=== PATIENT | female | born 1945 | race Caucasian/White ===

== ENCOUNTER → 2016-09-06 | Outpatient (CLI) | payer MEDICARE, BC | LOC: MW.CHGS 08:00 | PROVIDERS: ATTEND Surgery | DX: C18.9 Malignant neoplasm of colon, unspecified (principal) | CPT/HCPCS: 99203 ==

== ENCOUNTER 2016-09-22 09:06 | Day surgery (SDC) | payer MEDICARE, BC ==
[~2016-09-22 09:06] MED LIST: Lactated Ringers 1,000 ML IV SCH; Propofol 200 MG/20 ML SDV ONE; Sodium Chloride 0.9% 10 ML Syringe FLUSH PRN; Sodium Chloride 0.9% 2.5 ML Syringe FLUSH PRN; fentaNYL 100 MCG/2 ML SDV ONE
--- NOTE | 2016-09-22 09:51 | PCM.PREANE ---
Preanesthetic Assessment - Anesthesia/Transfusion/Family Hx Anesthesia History: Prior Anesthesia Without Reaction Family History of Anesthesia Reaction: No Transfusion History: Prior Transfusion Without Reaction - Review of Systems General: No Symptoms Pulmonary: No Symptoms Cardiovascular: No Symptoms Gastrointestinal: No symptoms Neurological: No Symptoms Other: Reports: None - Physical Assessment NPO Status Date: 09/21/16 NPO Status Time: 23:45 O2 Sat by Pulse Oximetry: 99 Respiratory Rate: 16 Vital Signs: Last Vital Signs Temp 37.2 C 09/22/16 09:28 Pulse 72 09/22/16 09:28 Resp 16 09/22/16 09:28 BP 105/59 L 09/22/16 09:28 Pulse Ox 99 09/22/16 09:28 Height: 1.57 m Weight: 54.885 kg ASA Class: 1 Mental Status: Alert & Oriented x3 Airway Class: Mallampati = 1 Dentition: Reports: Normal Dentition ROM/Head Extension: Full Lungs: Clear to auscultation Cardiovascular: Regular Rate - Allergies Allergies/Adverse Reactions: Allergies Allergy/AdvReac Type Severity Reaction Status Date / Time No Known Allergies Allergy Verified 09/20/16 09:28 - Anesthesia Plan Pre-Op Medication Ordered: None - Acknowledgements Anesthesia Type Planned: MAC Pt an Appropriate Candidate for the Planned Anesthesia: Yes Alternatives and Risks of Anesthesia Discussed w Pt/Guardian: Yes Pt/Guardian Understands and Agrees with Anesthesia Plan: Yes PreAnesthesia Questionnaire HEENT History: Reports: Other (see below) Other HEENT History: wears glasses Cardiovascular History: Reports: High cholesterol Gastrointestinal History: Reports: Hiatal hernia Genitourinary History: Reports: None TRANSPORT RN History: Reports: Hematologic History: Reports: Blood transfusion(s) Other Hematologic History: hx blood transfusion during chemo treatment - Past Surgical History Head Surgeries/Procedures: Reports: None GI Surgical History: Reports: Colon Other GI Surgeries/Procedures: partial colectomy for colon cancer Female Surgical History: Reports: section Other Female Surgeries/Procedures: c/section x2 - SUBSTANCE USE Smoking Status *Q: Never Smoker Recreational Drug Use History: No - HOME MEDS Home Medications: Home Meds Cyanocobalamin (Vitamin B12) [Vitamin B12] 1,000 mcg PO BID 09/20/16 [History] Magnesium Oxide 400 mg PO DAILY 09/20/16 [History] Potassium Chloride 20 meq PO DAILY 09/20/16 [History] atorvaSTATin Calcium [Atorvastatin Calcium] 40 mg PO DAILY 09/20/16 [History] - CURRENT (IN HOUSE) MEDS Current Meds: Current Medications Lactated Ringer's (Ringers, Lactated) 1,000 mls @ 125 mls/hr IV ASDIRECTED WYATT Last Admin: 09/22/16 09:30 Dose: 125 mls/hr Sodium Chloride (Saline Flush) 10 ml FLUSH ASDIRECTED PRN PRN Reason: Keep Vein Open Sodium Chloride (Saline Flush) 2.5 ml FLUSH ASDIRECTED PRN PRN Reason: Keep Vein Open Discontinued Medications Fentanyl (Sublimaze) Confirm Administered Dose 100 mcg .ROUTE .STK-MED ONE Stop: 09/22/16 06:59 Propofol (Diprivan 20 Ml) Confirm Administered Dose 400 mg .ROUTE .STK-MED ONE Stop: 09/22/16 06:59 Preanesthetic Assessment - ANESTHESIA/TRANSFUSION/FAMILY HX Family History of Anesthesia Reaction: No - PHYSICAL ASSESSMENT O2 Sat by Pulse Oximetry: 99 RR: 16 Vital Signs: Last Vital Signs Temp 37.2 C 09/22/16 09:28 Pulse 72 09/22/16 09:28 Resp 16 09/22/16 09:28 BP 105/59 L 09/22/16 09:28 Pulse Ox 99 09/22/16 09:28 Height: 1.57 m Weight: 54.885 kg NPO Status Date: 09/21/16 NPO Status Time: 23:45 - ALLERGIES Allergies/Adverse Reactions: Allergies Allergy/AdvReac Type Severity Reaction Status Date / Time No Known Allergies Allergy Verified 09/20/16 09:28
--- NOTE | 2016-09-22 11:47 | PCM.OPNOTE ---
- General Post-Op/Procedure Note Date of Surgery/Procedure: 09/22/16 Operative Procedure(s): Diagnostic colonoscopy Findings: Stenosis at anastamotic site Pre Op Diagnosis: History of colon cancer Post-Op Diagnosis: same Anesthesia Technique: MAC Primary Surgeon: Brooklyn Crooks Condition: Good
--- NOTE | 2016-09-22 11:59 | PCM.POSTAN ---
POST ANESTHESIA ASSESSMENT - MENTAL STATUS Mental Status: alert, oriented - RESPIRATORY Respiratory Status: respiratory rate WNL, airway patent, O2 saturation stable - CARDIOVASCULAR CV Status: pulse rate WNL, blood pressure stable - GASTROINTESTINAL GI Status: no symptoms - PAIN Pain Score: 0 - POST OP HYDRATION Hydration Status: adequate & stable
[2016-09-22 12:11] VITALS: BP 124/71
--- NOTE | 2016-09-22 13:16 | PCM48HPAN ---
Post Anesthesia Note - EVALUATION WITHIN 48HRS OF ANESTHETIC Vital Signs in Normal Range: Yes Patient Participated in Evaluation: Yes Respiratory Function Stable: Yes Airway Patent: Yes Cardiovascular Function Stable: Yes Hydration Status Stable: Yes Pain Control Satisfactory: Yes Nausea and Vomiting Control Satisfactory: Yes Mental Status Recovered: Yes
--- NOTE | 2016-09-22 16:19 | CR ---
EXAMINATION: Single contrast barium enema HISTORY: Anastomotic stenosis COMPARISON: CT dated 12/28/2015 TECHNIQUE: Single contrast barium minimal was performed. FINDINGS: There is a moderate stenosis at the surgical anastomosis site at the rectosigmoid junction . This was noted early during the procedure however the cecum overlies this area and a cyst was not well characterized on the later images. The remaining colon appears normally distensible. No filling defect or stricture within the remaining colon. No reflux into the terminal ileum. IMPRESSION: 1. At least a moderate short segment stenosis at the rectosigmoid junction.
--- NOTE | 2016-09-22 21:22 | OR ---
SURGEON: KVNG ESTRADA MD DATE OF PROCEDURE: 09/22/2016 PREOPERATIVE DIAGNOSIS: History of colon cancer. POSTOPERATIVE DIAGNOSIS: Stenosis at the anastomotic site. PROCEDURE PERFORMED: Diagnostic colonoscopy with biopsies. INSTRUMENT USED: Olympus colonoscope. ANESTHESIA: MAC. EXTENT OF THE EXAM: 5 cm from the anus. PREPARATION: Good. LIMITATIONS: None. INDICATIONS FOR EXAMINATION: The patient is a 71-year-old female, who presents for her 3-year followup colonoscopy. She had a rectosigmoid resection for colon cancer performed 3 years ago. Her 1 year followup colonoscopy was normal. The patient would like to have her 3-year colonoscopy performed here to avoid a trip to [place]. The patient has been having no changes in her bowel habits as of recent including changing color, caliber, or consistency of her stool. The patient and I discussed the colonoscopy procedure including expected perioperative course. We discussed the risks, including bleeding, infection, or damage to surrounding structures, including perforation. The patient verbalized understanding and wished to proceed. PROCEDURE IN DETAIL: The patient was brought into the endoscopy suite and placed in left lateral decubitus position. A time-out was completed verifying the patient's name, age, date of , allergies, and procedure to be performed. Monitored anesthesia care was induced. Continuous oxygen was provided via face mask throughout the procedure. After adequate sedation was achieved, a digital rectal exam was performed. This examination was within normal limits. A well lubricated colonoscope was then inserted in the rectum and advanced under direct visualization. Between 5 to 10 cm from the anal verge, saul were noted within the colon. This is consistent with the patient's previous surgical history. I was unable to transverse my scope past the anastomosis itself. This was a narrow opening bounded by saul. No gross fungating mass was noted in the area. I was able to note a very small anastomotic opening. A biopsy forceps was brought into the field and easily traversed past this opening. I irrigated the area copiously and inspected the surrounding tissue. No masses were noted and fluid passed easily past the opening. Biopsies were taken in a circumferential manner around the anastomotic site and sent to pathology. The scope was then completely removed from the patient and the procedure terminated. The patient was then transferred to the recovery room in stable condition. ENDOSCOPIC DIAGNOSIS: Anastomotic stricture. RECOMMENDATIONS: The patient will go for a contrast barium enema in Radiology today. A CEA level was drawn that came back as 2.2. We will have the patient be seen by her previous surgeon, Dr. Gray, in [place] within the week with the results of our biopsies as well as the contrast enema and this operative note. KEVON MARROQUIN /[id number]
== END 2016-09-22 12:25 | disposition home or self-care (01) ==
LOC: MW.SDS 09:06
PROVIDERS: ATTEND Surgery
PROC: 0DBE8ZX Excision of Large Intestine, Via Natural or Artificial Opening Endoscopic, Diagnostic (ICD-10-PCS; principal; 2016-09-22)
DX: K91.89 Other postprocedural complications and disorders of digestive system (principal); E78.5 Hyperlipidemia, unspecified; E87.6 Hypokalemia; E83.42 Hypomagnesemia; Z85.038 Personal history of other malignant neoplasm of large intestine; Z90.49 Acquired absence of other specified parts of digestive tract; Z98.890 Other specified postprocedural states; Z79.899 Other long term (current) drug therapy
CPT/HCPCS: 36415; 45380; 74270; 82378; 88305; J3010; J7120; J2704